=== PATIENT | female | born 1975 | race Hispanic/Latino ===

== ENCOUNTER → 2016-10-22 | Outpatient (CLI) | payer OTHER ==
--- NOTE | 2016-10-26 14:51 | REPMRS ---
Patient History The patient states she has not had a clinical breast exam in over a year. Family history of ovarian cancer in sister at age 40 and breast cancer in maternal aunt at age 50. File area will be calling for [place] priors Digital Mammo Screening Bilat: October 22, 2016 - Exam #: [id number] Bilateral CC and MLO view(s) were taken. Technologist: Margarita Christopher, Technologist FINDINGS: The breast tissue is heterogeneously dense. This may lower the sensitivity of mammography. There has been no change in the appearance of the mammogram from the prior studies. There is a moderate amount of residual fibroglandular tissue which is fairly symmetric. There is no interval development of dominant mass, areas of architectural distortion, or clustered microcalcification typical of malignancy. ASSESSMENT: BI-RADS/ACR category 1 mammogram. Negative. Recommendation Routine screening mammogram in 1 year (for women over age 40). This mammogram was interpreted with the aid of an FDA-approved computer-aided dectection system. Electronically Signed By: Julien Smith MD 10/26/16 [id number]
== END ==
LOC: M RAD 09:02
DX: Z12.31 Encounter for screening mammogram for malignant neoplasm of breast (principal); Z80.41 Family history of malignant neoplasm of ovary; Z80.3 Family history of malignant neoplasm of breast

== ENCOUNTER 2016-12-23 08:42 | Emergency (ER) | payer OTHER ==
[~2016-12-23] VITALS: Ht 154.9 cm; Wt 52.2 kg
[2016-12-23] MEDS ORDERED: ZOFR4TAB3 PO (09:55)
[2016-12-23] MEDS ORDERED: ACETAMINOPHEN 325 MG TAB PO ONE (10:00)
[2016-12-23] MEDS ORDERED: ONDANSETRON 4 MG ORAL DISINTEGRATING TAB (S0181) PO ONE (10:00)
[2016-12-23 10:02] VITALS: BP 115/77
== END 2016-12-23 10:05 | disposition home or self-care (01) ==
LOC: M ED 09:39
DX: R10.84 Generalized abdominal pain (principal); R11.0 Nausea; R19.7 Diarrhea, unspecified; Z90.89 Acquired absence of other organs; Z88.0 Allergy status to penicillin

== ENCOUNTER → 2017-10-15 | Outpatient (CLI) | payer OTHER | LOC: M RAD 08:46 | DX: Z12.31 Encounter for screening mammogram for malignant neoplasm of breast (principal) ==

== ENCOUNTER → 2017-10-26 | Outpatient (CLI) | payer OTHER | LOC: M RAD 08:54 | DX: N60.02 Solitary cyst of left breast (principal) | CPT/HCPCS: 77066 ==

== ENCOUNTER 2018-05-03 17:02 | Emergency (ER) | payer OTHER ==
[2018-05-03] MEDS: NS 1,000 ML IV ×2 (18:14)
[2018-05-03 18:19] LABS: BASO % 0.2 % (0.0-1.0); EOS # 0.1 10^3/uL (0.0-0.50); EOS % 0.9 % (0.0-3.0); HEMATOCRIT 35.5 % (36.0-47.0); IMMATURE GRANULOCYTE % 0.2 % (0-3.0); LYMPH # 1.5 10^3/uL (1.5-4.5); LYMPH % 16.5 % (24.0-44.0); MEAN CORPUSCULAR HEMOGLOBIN 32.3 pg (27.0-33.0); MEAN CORPUSCULAR HGB CONC 33.8 g/dl (32.0-36.5); MEAN CORPUSCULAR VOLUME 95.4 fl (80.0-96.0); MONO # 0.8 10^3/uL (0.0-0.8); MONO % 9.1 % (0.0-5.0); NEUTROPHILS # 6.7 10^3/uL (1.8-7.7); NEUTROPHILS % 73.1 % (36.0-66.0); PLATELET COUNT, AUTOMATED 258 10^3/uL (150-450); RED BLOOD COUNT 3.72 10^6/uL (4.00-5.40); RED CELL DISTRIBUTION WIDTH 13.2 % (11.5-14.5); WHITE BLOOD COUNT 9.1 10^3/uL (4.0-10.0)
[2018-05-03 18:26] LABS: KETONE, URINE AUTO RFX 1+ mg/dL (NEGATIVE); LEUKOCYTE ESTERASE UR AUTO RFX NEGATIVE (NEGATIVE); MUCUS, URINE RFX SMALL (NEGATIVE); NITRITE, URINE AUTO RFX NEGATIVE (NEGATIVE); RBC, URINE AUTO RFX TNTC /HPF (0-3); SPECIFIC GRAVITY UR AUTO RFX 1.024 (1.002-1.035); SQUAM EPITHELIAL CELL UR AURFX 1 /HPF (0-6); WBC, URINE AUTO RFX 4 /HPF (0-3)
[2018-05-03 18:53] LABS: ALBUMIN 3.8 GM/DL (3.2-5.2); ALBUMIN/GLOBULIN RATIO 1.12 (1.00-1.93); ALKALINE PHOSPHATASE 62 U/L (45-117); ALT/SGPT 15 U/L (12-78); AMYLASE 100 U/L (25-115); ANION GAP 10 MEQ/L (8-16); AST/SGOT 18 U/L (7-37); BILIRUBIN,DIRECT 0.2 MG/DL (0.0-0.2); BILIRUBIN,TOTAL 0.7 MG/DL (0.2-1.0); BLOOD UREA NITROGEN 18 MG/DL (7-18); CALCIUM LEVEL 8.9 MG/DL (8.5-10.1); CARBON DIOXIDE LEVEL 24 MEQ/L (21-32); CHLORIDE LEVEL 105 MEQ/L (98-107); CREATININE FOR GFR 0.87 MG/DL (0.55-1.30); GLOMERULAR FILTRATION RATE > 60.0 (>58); GLUCOSE, FASTING 93 MG/DL (70-100); LIPASE 91 U/L (73-393); POTASSIUM SERUM 3.8 MEQ/L (3.5-5.1); SODIUM LEVEL 139 MEQ/L (136-145); TOTAL PROTEIN 7.2 GM/DL (6.4-8.2)
[2018-05-03] MEDS ORDERED: ISOVUE-370 76% 100ML VIAL (Q9967) As Ordered ×2 (19:02)
== END 2018-05-03 20:26 | disposition home or self-care (01) ==
LOC: M ED 17:02
DX: N13.30 Unspecified hydronephrosis (principal); J45.909 Unspecified asthma, uncomplicated; Z79.899 Other long term (current) drug therapy; Z88.0 Allergy status to penicillin
CPT/HCPCS: Q9967

== ENCOUNTER → 2018-05-17 | Outpatient (CLI) | payer OTHER ==
[~2018-05-17] MED LIST: ISOVUE-370 76% 100ML VIAL (Q9967) As Ordered
[2018-05-17 10:21] LABS: APPEARANCE, URINE CLEAR (CLEAR); BACTERIA, URINE AUTO NEGATIVE (NEGATIVE); BILIRUBIN, URINE AUTO NEGATIVE (NEGATIVE); BLOOD, URINE BLOOD NEGATIVE (NEGATIVE); COLOR, URINE YELLOW (YELLOW); GLUCOSE, URINE (UA) AUTO NEGATIVE (NEGATIVE); KETONE, URINE AUTO NEGATIVE (NEGATIVE); LEUKOCYTE ESTERASE, URINE AUTO NEGATIVE (NEGATIVE); MUCUS, URINE SMALL (NEGATIVE); NITRITE, URINE AUTO NEGATIVE (NEGATIVE); PROTEIN, URINE AUTO NEGATIVE (NEGATIVE); RBC, URINE AUTO 1 /HPF (0-3); SPECIFIC GRAVITY URINE AUTO 1.016 (1.002-1.035); SQUAMOUS EPITHELIAL CELL UR AU 0 /HPF (0-6); UROBILINOGEN, URINE AUTO 0.2 mg/dL (0.0-2.0); WBC, URINE AUTO 1 /HPF (0-3)
== END ==
LOC: M RAD 08:17
DX: N20.0 Calculus of kidney (principal)
CPT/HCPCS: Q9967

== ENCOUNTER 2019-07-10 19:16 | Emergency (ER) | payer OTHER ==
[~2019-07-10] VITALS: Ht 154.9 cm; Wt 52.3 kg
[~2019-07-10 19:16] MED LIST changes: +ADVA230A; +BACT800T5 PO; +DEEP; +EPIP0.3I2 IM; +FLOM0.4C39 PO; +HYDR-3715 PO; -ISOVUE-370 76% 100ML VIAL (Q9967) As Ordered; +KETO10TAB PO; +NAPR-837 PO; +OLOP0.1D; +SPIR-10; +ZOFR4TAB14 PO
[2019-07-10 21:46] VITALS: BP 111/68
== END 2019-07-10 21:51 | disposition home or self-care (01) ==
LOC: M ED 19:16
DX: S61.211A Laceration without foreign body of left index finger without damage to nail, initial encounter (principal); Y92.090 Kitchen in other non-institutional residence as the place of occurrence of the external cause; Y93.G1 Activity, food preparation and clean up; Y99.8 Other external cause status; J45.909 Unspecified asthma, uncomplicated; Z88.0 Allergy status to penicillin; Z79.899 Other long term (current) drug therapy; Z79.51 Long term (current) use of inhaled steroids

== ENCOUNTER 2019-12-21 16:50 | Emergency (ER) | payer OTHER ==
[~2019-12-21] VITALS: Ht 154.9 cm; Wt 53.7 kg
[2019-12-21] MEDS ORDERED: NAPR-885 (16:57)
[2019-12-21] MEDS ORDERED: NS 1,000 ML IV ONE (17:45)
[2019-12-21] MEDS ORDERED: ONDANSETRON 4MG/2ML VIAL IV ONE (17:45)
[2019-12-21] MEDS ORDERED: KETOROLAC 30 MG/ML 1ML VIAL IV ONE (18:00)
[2019-12-21 18:29] LABS: BASO % 0.4 % (0.0-1.0); EOS # 0.1 10^3/uL (0.0-0.5); EOS % 0.9 % (0.0-3.0); HEMATOCRIT 37.9 % (36.0-47.0); HEMOGLOBIN 12.5 g/dl (12.0-15.5); LYMPH # 1.9 10^3/uL (1.5-5.0); LYMPH % 20.2 % (24.0-44.0); MEAN CORPUSCULAR HEMOGLOBIN 32.3 pg (27.0-33.0); MEAN CORPUSCULAR VOLUME 97.9 fl (80.0-96.0); MONO # 0.9 10^3/uL (0.0-0.8); MONO % 9.3 % (0.0-5.0); NEUTROPHILS # 6.3 10^3/uL (1.5-8.5); NEUTROPHILS % 68.8 % (36.0-66.0); PLATELET COUNT, AUTOMATED 246 10^3/uL (150-450); RED BLOOD COUNT 3.87 10^6/uL (4.00-5.40); WHITE BLOOD COUNT 9.2 10^3/uL (4.0-10.0)
[2019-12-21 18:38] LABS: ALBUMIN 3.8 GM/DL (3.2-5.2); ALT/SGPT 21 U/L (12-78); BILIRUBIN,DIRECT 0.2 MG/DL (0.0-0.2); BILIRUBIN,TOTAL 0.6 MG/DL (0.2-1.0); BLOOD UREA NITROGEN 14 MG/DL (7-18); CALCIUM LEVEL 9.1 MG/DL (8.5-10.1); CARBON DIOXIDE LEVEL 31 MEQ/L (21-32); CHLORIDE LEVEL 106 MEQ/L (98-107); CREATININE FOR GFR 0.76 MG/DL (0.55-1.30); GLOMERULAR FILTRATION RATE > 60.0 (>58); GLUCOSE, FASTING 74 MG/DL (70-100); LIPASE 82 U/L (73-393); POTASSIUM SERUM 3.8 MEQ/L (3.5-5.1); SODIUM LEVEL 142 MEQ/L (136-145); TOTAL PROTEIN 7.1 GM/DL (6.4-8.2)
--- NOTE | 2019-12-21 19:39 | REPVR ---
PROCEDURE INFORMATION: Exam: CT Abdomen And Pelvis Without Contrast Exam date and time: 12/21/2019 7:22 PM Age: 44 years old Clinical indication: Abdominal pain; Flank; Left; Additional info: Left flank pain, hematuria TECHNIQUE: Imaging protocol: Computed tomography of the abdomen and pelvis without contrast. Radiation optimization: All CT scans at this facility use at least one of these dose optimization techniques: automated exposure control; mA and/or kV adjustment per patient size (includes targeted exams where dose is matched to clinical indication); or iterative reconstruction. COMPARISON: CT ABD PELVIS W/O FOL BY WIT 05/17/2018 8:44 AM FINDINGS: Liver: Normal. No mass. Gallbladder and bile ducts: The gallbladder is incompletely distended. This is most likely related to incomplete fasting. Clinical correlation to exclude gallbladder pathology suggested. Pancreas: Normal. No ductal dilation. Spleen: Normal. No splenomegaly. Adrenals: Normal. No mass. Kidneys and ureters: Punctate nonobstructive calculi both kidneys. Punctate 2 mm and 3 mm calculi in the region of the left UVJ may represent obstructive ureteral calculus although the distal left ureter is not clearly visualized. Further evaluation with CT urography could be obtained if clinically desired. Stomach and bowel: Unremarkable. No obstruction. No mucosal thickening. Appendix: There has been an appendectomy. Intraperitoneal space: Unremarkable. No free air. No significant fluid collection. Vasculature: Unremarkable. No abdominal aortic aneurysm. Lymph nodes: Unremarkable. No enlarged lymph nodes. Bladder: Unremarkable as visualized. Reproductive: Unremarkable as visualized. Bones/joints: Unremarkable. No acute fracture. Soft tissues: Unremarkable. IMPRESSION: 1. The gallbladder is incompletely distended. This is most likely related to incomplete fasting. Clinical correlation to exclude gallbladder pathology suggested. 2. Punctate nonobstructive calculi both kidneys. 3. Punctate 2 mm and 3 mm calculi in the region of the left UVJ may represent obstructive ureteral calculus although the distal left ureter is not clearly visualized. Further evaluation with CT urography could be obtained if clinically desired. Electronically signed by: León Lo On 12/21/2019 19:38:48 PM
[2019-12-21] MEDS ORDERED: KETO10TAB PO (20:06)
[2019-12-21] MEDS ORDERED: FLOM0.4C39 PO (20:06)
[2019-12-21] MEDS ORDERED: KETOROLAC TROMETHAMINE 10 MG TAB PO ONE (20:15)
[2019-12-21] MEDS ORDERED: TAMSULOSIN 0.4 MG CAP PO ONE (20:15)
[2019-12-21 20:20] VITALS: BP 126/74
== END 2019-12-21 20:22 | disposition home or self-care (01) ==
LOC: M ED 16:50
DX: N20.1 Calculus of ureter (principal); J45.909 Unspecified asthma, uncomplicated; K90.0 Celiac disease; Z88.0 Allergy status to penicillin; Z79.899 Other long term (current) drug therapy; Z79.51 Long term (current) use of inhaled steroids; Z79.1 Long term (current) use of non-steroidal anti-inflammatories (NSAID)
CPT/HCPCS: 36415; 74176; 80048; 80076; 81001; 83690; 84702; 85025; 87086; 96361; 96374; 96375; 99284; J1885; J2405

== ENCOUNTER → 2019-12-28 | Outpatient (REF) | payer OTHER ==
[~2019-12-28] MED LIST changes: +NAPR-885
[2019-12-28 15:34] LABS: APPEARANCE, URINE CLEAR (CLEAR); BACTERIA, URINE AUTO NEGATIVE (NEGATIVE); BILIRUBIN, URINE AUTO NEGATIVE (NEGATIVE); BLOOD, URINE BLOOD 2+ (NEGATIVE); COLOR, URINE COLORLESS (YELLOW); GLUCOSE, URINE (UA) AUTO NEGATIVE (NEGATIVE); KETONE, URINE AUTO NEGATIVE (NEGATIVE); LEUKOCYTE ESTERASE, URINE AUTO NEGATIVE (NEGATIVE); NITRITE, URINE AUTO NEGATIVE (NEGATIVE); PROTEIN, URINE AUTO NEGATIVE (NEGATIVE); RBC, URINE AUTO 0 /HPF (0-3); SPECIFIC GRAVITY URINE AUTO 1.003 (1.002-1.035); SQUAMOUS EPITHELIAL CELL UR AU 0 /HPF (0-6); UROBILINOGEN, URINE AUTO 0.2 mg/dL (0.0-2.0); WBC, URINE AUTO 0 /HPF (0-3)
== END ==
LOC: M SMT 15:00
PROVIDERS: ATTEND Nurse Practitioner Family
DX: N20.0 Calculus of kidney (principal)
CPT/HCPCS: 81001; 87086; G0463

== ENCOUNTER → 2020-01-18 | Outpatient (CLI) | payer OTHER ==
[~2020-01-18] MED LIST changes: +ISOVUE-370 76% 100ML VIAL As Ordered ONE
--- NOTE | 2020-01-19 05:34 | REP ---
Clinical: History of kidney stone. Technique: Axial precontrast, contrast enhanced, and delayed images of the abdomen and pelvis using 100 ml Isovue 370 intravenous contrast material with coronal and sagittal re-formations. Comparison: 12/21/2019, 05/17/2018. Findings: The kidneys demonstrate few bilateral nonobstructing intrarenal calculi (right greater than left) measuring 2 mm in left kidney and 3 mm in the right kidney. No associated perinephric stranding, hydroureteronephrosis, or definite obstructing ureteral calculi noted. Calcifications identified within the lower abdomen and pelvis are similar to 2018 and likely represent scattered phleboliths. Liver, spleen, pancreas, gallbladder, and bilateral adrenal glands are normal. The enteric system is without obstruction or acute inflammatory process. Pelvis demonstrates normal bladder and age-appropriate uterus/adnexa. No significant ascites. No free air. No obvious adenopathy. Abdominal aorta and vasculature without aneurysm or dissection. Surrounding musculoskeletal structures without acute osseous abnormality. Impression: 1. Few nonobstructing bilateral intrarenal calculi up to 3 mm without hydronephrosis or perinephric stranding. 2. Scattered calcifications within the lower abdomen and pelvis are similar to prior examinations and likely represent phleboliths although small nonobstructing ureteral calculus cannot definitively be excluded. 3. No further acute abdominopelvic pathology appreciated. Electronically Signed by Ronnie Pisano MD 01/19/2020 05:25 A
== END ==
LOC: M RAD 14:56
PROVIDERS: ATTEND Nurse Practitioner Family
DX: N20.0 Calculus of kidney (principal)
CPT/HCPCS: 74178; Q9967

== ENCOUNTER → 2020-01-19 | Outpatient (CLI) | payer OTHER ==
[~2020-01-19] MED LIST changes: -ISOVUE-370 76% 100ML VIAL As Ordered ONE
--- NOTE | 2020-01-20 07:59 | REP ---
BILATERAL MAMMOGRAM WITH 3D TOMOSYNTHESIS: FAMILY HISTORY: Breast cancer in maternal aunt. [facility] lifetime risk of breast cancer 12.2%. COMPARISON MAMMOGRAM: 10/26/2017 and 10/22/2016. Breast parenchyma is moderately dense in a heterogenous pattern bilaterally, diffusely. I see no mass. No architectural distortion is seen. There do appear to be tiny pleomorphic microcalcifications in the upper outer quadrant of the right breast. IMPRESSION: There appear to be several tiny pleomorphic microcalcifications in the upper outer quadrant of the right breast. Recommend magnification views to further evaluate. ACR 0, incomplete. BIRADS 0: BI-RADS/ACR category 0 mammogram, Incomplete: Need additional imaging evaluation and/or prior mammograms for comparison. This mammogram was interpreted with the aid of an FDA-approved computer-aided detection system. The patient states that she or he has not had a clinical breast exam in over a year. The patient letter being requested is M0.
== END ==
LOC: M WHC 15:04
PROVIDERS: ATTEND Nurse Practitioner Primary Care
DX: Z12.31 Encounter for screening mammogram for malignant neoplasm of breast (principal); R92.0 Mammographic microcalcification found on diagnostic imaging of breast

== ENCOUNTER → 2020-02-02 | Outpatient (REF) | payer OTHER ==
[~2020-02-02] MED LIST changes: +HYDR-3713 PO
[2020-02-02 18:04] LABS: APPEARANCE, URINE CLEAR (CLEAR); BACTERIA, URINE AUTO NEGATIVE (NEGATIVE); BILIRUBIN, URINE AUTO NEGATIVE (NEGATIVE); BLOOD, URINE BLOOD NEGATIVE (NEGATIVE); COLOR, URINE COLORLESS (YELLOW); GLUCOSE, URINE (UA) AUTO NEGATIVE (NEGATIVE); KETONE, URINE AUTO NEGATIVE (NEGATIVE); LEUKOCYTE ESTERASE, URINE AUTO NEGATIVE (NEGATIVE); NITRITE, URINE AUTO NEGATIVE (NEGATIVE); PROTEIN, URINE AUTO NEGATIVE (NEGATIVE); RBC, URINE AUTO 0 /HPF (0-3); SPECIFIC GRAVITY URINE AUTO 1.001 (1.002-1.035); SQUAMOUS EPITHELIAL CELL UR AU 0 /HPF (0-6); UROBILINOGEN, URINE AUTO 0.2 mg/dL (0.0-2.0); WBC, URINE AUTO 0 /HPF (0-3)
== END ==
LOC: M SMT 16:38
PROVIDERS: ATTEND Nurse Practitioner Family
DX: N20.0 Calculus of kidney (principal)
CPT/HCPCS: 81001; 87086; G0463

== ENCOUNTER → 2020-02-05 | Outpatient (CLI) | payer OTHER ==
--- NOTE | 2020-02-05 16:23 | REP ---
DIGITAL DIAGNOSTIC UNILATERAL RIGHT BREAST MAMMOGRAPHY WITH CAD: THREE VIEWS. HISTORY: Screening mammography January 19, 2020 was BI-RADS category 0 because of tiny pleomorphic microcalcifications in the upper outer quadrant. Comparison is also made with October 26, 2017 and October 22, 2016 prior mammography. MAMMOGRAPHIC FINDINGS: Magnified focal spot compression craniocaudal, mediolateral oblique, and mediolateral views confirm the presence of a grouping of pleomorphic microcalcifications in the upper outer quadrant of the right breast laterally. This represents a change from prior mammography. No architectural distortion or mass lesion is seen. IMPRESSION: BIRADS 4: BI-RADS/ACR category 4 mammogram. Suspicious Abnormality - biopsy should be considered. BI-RADS category 4 suspicious right breast mammogram. Microcalcifications confirmed in the upper outer quadrant on the right. Stereotactic needle biopsy recommended. This mammogram was interpreted with the aid of an FDA-approved computer-aided detection system.
== END ==
LOC: M WHC 15:37
PROVIDERS: ATTEND Nurse Practitioner Primary Care
DX: Z12.31 Encounter for screening mammogram for malignant neoplasm of breast (principal); R92.0 Mammographic microcalcification found on diagnostic imaging of breast

== ENCOUNTER 2020-02-13 22:26 | Emergency (ER) | payer OTHER ==
[~2020-02-13] VITALS: Ht 154.9 cm; Wt 51.2 kg
[~2020-02-13 22:26] MED LIST changes: -HYDR-3713 PO
[2020-02-13] MEDS ORDERED: HYDR-3713 PO (22:49)
[2020-02-14 01:00] VITALS: BP 148/88
[2020-02-14] MEDS ORDERED: MAGNESIUM CITRATE 300 ML BTL PO ONE (01:00)
== END 2020-02-14 01:13 | disposition home or self-care (01) ==
LOC: M ED 22:26
DX: K64.8 Other hemorrhoids (principal)

== ENCOUNTER → 2020-02-28 | Outpatient (CLI) | payer OTHER ==
[~2020-02-28] MED LIST changes: +HYDR-3713 PO
[2020-02-28 09:32] VITALS: BP 128/80
--- NOTE | 2020-02-28 10:30 | REP ---
STEREOTACTIC NEEDLE BIOPSY PROCEDURE RIGHT BREAST: Stereotactic guidance. HISTORY: Right breast microcalcifications. Comparison mammography February 05, 2020. FINDINGS: Stereotactic imaging guidance is provided to Dr. Renner who performed stereotactic needle biopsy procedure for microcalcific grouping upper outer quadrant right breast.
--- NOTE | 2020-02-28 10:37 | REP ---
SPECIMEN RADIOGRAPHY RIGHT BREAST: HISTORY: Stereotactic needle biopsy for microcalcifications. FINDINGS: Specimen radiograph demonstrates microcalcifications from the microcalcific grouping in three of the removed specimens. The microcalcific grouping appears to have been removed entirely. IMPRESSION: Specimen radiography shows microcalcifications.
--- NOTE | 2020-02-28 13:42 | REP ---
DIGITAL DIAGNOSTIC UNILATERAL RIGHT BREAST MAMMOGRAPHY: Two views. With CAD HISTORY: Status post stereotactic needle biopsy procedure for a microcalcifications. Comparison mammography February 05, 2020. FINDINGS: Craniocaudal and mediolateral views are obtained. These demonstrate the needle biopsy marker clip in good position at the site where prior mammography showed microcalcifications. The microcalcifications are not visible consistent with complete removal of the microcalcific target. There is some post biopsy skin thickening laterally. IMPRESSION: Marker clip in good position. This mammogram was interpreted with the aid of an FDA-approved computer-aided detection system.
--- NOTE | 2020-05-02 18:39 | ROOPDOC ---
[facility] Report Of Operation Report of Operation This is a late entry note for the encounter from the date 02/28/20. Delay is due to major systemwide [facility] computer outage. procedure Date: 02/28/20 Dx: Right breast calcifications Procedure: Right breast stereotactic biopsy with clop placement Findings: calcifications are present in the specimen. The clip is seen on postbiopsy mammogram in the expected position surgeon: Bharat Tariq Lidocaine 1% LOT [id number] Expiration 01/2023 Sodium Bicarbonate 8.4% LOT [id number] Expiration 01/2021 Hydromark clip LOT [id number] Expiration 05/2021 REF: T1 titanium shaped 1 (closed Spring) Bx device: Stereotactic Mammotome Revolve Dual Vacuum- assisted Biopsy System 10 G LOT [id number] Expiration 10/2022 REF [id number] Informed consent was obtained in the preop area. The most common risk and possible complications including bleeding, hematoma, bruising, infection, injury to surrounding structures were explained to the patient and she expressed understanding. Patient was taken to the procedure room and placed prone on the [facility] Prone Breast Biopsy table with the right breast hanging through the table aperture. Right breast was placed into Cranio-Caudal compression and [facility] zena images were taken. Suspicious calcifications were identified on the zena images and target was set. CC approach from the top was chosen for this procedure. At this time, since we were able to confirm visibility of the suspicious calci fications and patient tolerated prone positioning allowing to proceed with the biopsy, appropriate time out was done stating patients name, date of , and the procedure to be performed. The right breast in CC compression was prepped in the usual fashion. Plain Lidocaine 1% and 8.4% sodium bicarbonate 10:1 mix was used to anesthetize the skin, the biopsy site and tissues along the anticipated biopsy tract. Small skin incision was made with blade number 11. Mammotome 10 G stereotactic breast biopsy device was inserted through the incision and advanced to the previously set coordinates marking the target lesion. Pre-fire imaging was taken to assure appropriate positioning. At this time, Mammotome 10 G breast biopsy device was fired and vacuum assisted biopsies were collected. The biopsy samples were investigated with [employer] system and target calcifications were observed. Biopsy samples were then placed in the formaldehyde, marked with patients name and right breast biopsy site, and sent to pathology for evaluation. Hydromark clip was placed into the Mammotome biopsy device channel and deployed. Post-deployment imaging was done to assure appropriate clip deployment. Clip was noted in the right breast. At this point, paddle CC compression of the right breast was released and manual pressure was held to decrease harmonic effect and to assure hemostasis. There was some persistent bleeding noted after pressure release. Pressure was held until bleeding stopped. Patient was slowly repositioned and placed into sitting position, and then assisted off the table. Post-biopsy mammogram of the right breast was obtained and showed clip in expected position. Postprocedural dressing was placed. Patient tolerated procedure well and was taken to the recovery unit in stable condition. Discharge instructions were discussed with the patient and she expressed understanding. BHARAT TARIQ DO May 02, 2020 18:39
== END ==
LOC: M WHCPRO 07:35
PROVIDERS: ATTEND Surgery
DX: N60.11 Diffuse cystic mastopathy of right breast (principal); R59.9 Enlarged lymph nodes, unspecified; R92.1 Mammographic calcification found on diagnostic imaging of breast

== ENCOUNTER → 2020-04-10 | Outpatient (CLI) | payer OTHER ==
--- NOTE | 2020-05-07 13:01 | REP ---
ULTRASOUND RIGHT AXILLA HISTORY: Palpable lump right axilla. TECHNIQUE: Real-time sonographic evaluation of the right axillary region is performed. FINDINGS: There are two morphologically normal appearing lymph nodes present in the right axilla, demonstrating a thin hypoechoic rim and an echogenic hilum. These measure 1.2 x 0.9 x 0.4 cm and 1.3 x 0.9 x 0.7 cm. No other mass is seen. IMPRESSION: There are two normal appearing lymph nodes in the right axilla without other significant abnormality MTDD
--- NOTE | 2020-05-07 13:02 | REP ---
ULTRASOUND RIGHT BREAST HISTORY: Palpable lump 10 o'clock right breast 6 cm from the nipple. TECHNIQUE: Real-time sonographic evaluation of the right breast is performed in the region of the palpable lump 10 o'clock right breast. FINDINGS: Patient had stereotactic biopsy of microcalcifications at this same location of the right breast on 02/28/2020. Postbiopsy mammographic images do show suspected postbiopsy hematoma at the biopsy site. The ultrasound shows ill-defined heterogeneous nodular soft tissue with cystic components. There also appears to be a biopsy clip within this area of abnormal echotexture. The entire area measures 1.8 x 1.2 x 1.1 cm. The two cystic components measure 5 mm and 8 mm in maximum diameter. I suspect this represents a post-biopsy hematoma. IMPRESSION: ACR 3 probably benign. Heterogeneous cystic and solid nodule at the site of recent stereotactic biopsy I suspect represents a resolving hematoma. Recommend follow-up ultrasound in six months MTDD
== END ==
LOC: M WHC 14:54
PROVIDERS: ATTEND Surgery
DX: R59.9 Enlarged lymph nodes, unspecified (principal); N63.10 Unspecified lump in the right breast, unspecified quadrant

== ENCOUNTER → 2020-10-15 | Outpatient (CLI) | payer OTHER ==
--- NOTE | 2020-10-15 15:10 | REP ---
INDICATION: R92.1 RT BREAST CALCIFICATION,S/P BX,ASSESS STABILITY. Patient underwent stereotactic needle biopsy for microcalcifications right breast February 28, 2020. Benign pathologic result. COMPARISON: Comparison mammography is from February 28, 2020, and February 05, 2020. TECHNIQUE: Craniocaudal and mediolateral views are obtained. 3D tomography is carried out in the right breast. This mammogram was interpreted with the aid of an FDA-approved computer-aided detection system. FINDINGS: Heterogeneously dense breast parenchyma is observed in the right breast as before. Previously placed needle biopsy marker clip is again seen in the upper outer quadrant unchanged in position. The micro calcific target had been removed. No microcalcifications are seen. There is no evidence of spiculation architectural distortion or mass. The Volpara volumetric breast density pattern is C. : IMPRESSION: BIRADS/ACR category 2 benign right breast mammographic . This patient's Tyrer-Cuzick lifetime breast cancer risk assessment score is 12.0%. RECOMMENDATION: Repeat screening mammography recommended 1 year (for women over 40). The patient letter being requested is M2 dense. <Electronically signed by Jerel Alejandro > 10/15/20 [id number]
--- NOTE | 2020-10-15 17:01 | REP ---
INDICATION: R92.1 RT BREAST CALCIFICATION,S/P BX,ASSESS STABILITY. COMPARISON: Comparison targeted right breast sonography April 10, 2020 showed a ill-defined 1.8 cm area, of complex echogenicity thought to represent post biopsy hematoma. Follow-up at been recommended by ultrasound.. TECHNIQUE: Targeted right breast sonography is performed. FINDINGS: Scanning at the level of the previous biopsy site in the 10 o'clock position demonstrates a HydroMARK clip device in place. Adjacent to this there is a 0.5 x 0.7 x 0.2 cm simple cyst. The previously noted complex area has resolved. IMPRESSION: BI-RADS category 2 benign findings. <Electronically signed by Jerel Alejandro > 10/15/20 [id number]
== END ==
LOC: M WHC 14:22
PROVIDERS: ATTEND Surgery
DX: R92.1 Mammographic calcification found on diagnostic imaging of breast (principal); Z97.8 Presence of other specified devices
CPT/HCPCS: 76642; 77065; G0279

== ENCOUNTER 2020-11-17 02:07 | Emergency (ER) | payer OTHER ==
[~2020-11-17] VITALS: Ht 154.9 cm; Wt 54.5 kg
[2020-11-17] MEDS ORDERED: TERB250T12 PO (02:14)
[2020-11-17] MEDS ORDERED: ONDANSETRON 4MG/2ML VIAL IV ONE (03:15)
[2020-11-17] MEDS ORDERED: KETOROLAC 30 MG/ML 1ML VIAL IV ONE (03:15)
[2020-11-17 03:45] LABS: HEMATOCRIT 33.6 % (36.0-47.0); MEAN CORPUSCULAR HGB CONC 32.7 g/dl (32.0-36.5); MEAN CORPUSCULAR VOLUME 97.7 fl (80.0-96.0); PLATELET COUNT, AUTOMATED 209 10^3/uL (150-450); RED BLOOD COUNT 3.44 10^6/uL (4.00-5.40); WHITE BLOOD COUNT 6.6 10^3/uL (4.0-10.0)
--- NOTE | 2020-11-17 04:06 | REPVR ---
PROCEDURE INFORMATION: Exam: CT Abdomen And Pelvis Without Contrast Exam date and time: 11/17/2020 3:28 AM Age: 45 years old Clinical indication: Abdominal pain; Flank; Right; Additional info: Right flank pain HX of stone TECHNIQUE: Imaging protocol: Computed tomography of the abdomen and pelvis without contrast. Radiation optimization: All CT scans at this facility use at least one of these dose optimization techniques: automated exposure control; mA and/or kV adjustment per patient size (includes targeted exams where dose is matched to clinical indication); or iterative reconstruction. COMPARISON: 1. CT ABD PELVIS W/O FOL BY WIT 2020-01-18 16:[address] ABD PELVIS W/O CONTRAST 2019-12-21 19:19 FINDINGS: Liver: Normal. No mass. Gallbladder and bile ducts: Normal. No calcified stones. No ductal dilation. Pancreas: Normal. No ductal dilation. Spleen: Normal. No splenomegaly. Adrenal glands: Normal. No mass. Kidneys and ureters: Punctate nonobstructing right renal calculus. Mild right hydronephrosis and hydroureter with several ureteral calculi, larger of which measures 4 mm, likely source for obstruction. Stomach and bowel: Unremarkable. No obstruction. No mucosal thickening. Appendix: No evidence of appendicitis. Intraperitoneal space: Unremarkable. No free air. No significant fluid collection. Vasculature: Numerous phleboliths in the pelvis. Lymph nodes: Unremarkable. No enlarged lymph nodes. Urinary bladder: Unremarkable as visualized. Reproductive: Anteverted enlarged uterus. Bones/joints: Moderate lumbar spondylosis. Soft tissues: Unremarkable. IMPRESSION: Mild right hydronephrosis and hydroureter with several mid to distal ureteral calculi, larger of which measures 4 mm, likely source for obstruction. Electronically signed by: Luis Ha On 11/17/2020 04:06:56 AM
[2020-11-17 04:10] LABS: ALBUMIN 2.8 GM/DL (3.2-5.2); ALT/SGPT 12 U/L (12-78); BILIRUBIN,TOTAL 0.4 MG/DL (0.2-1.0); BLOOD UREA NITROGEN 11 MG/DL (7-18); CALCIUM LEVEL 8.5 MG/DL (8.5-10.1); CARBON DIOXIDE LEVEL 29 MEQ/L (21-32); CHLORIDE LEVEL 110 MEQ/L (98-107); CREATININE FOR GFR 0.67 MG/DL (0.55-1.30); GLOMERULAR FILTRATION RATE > 60.0 (>58); GLUCOSE, FASTING 98 MG/DL (70-100); POTASSIUM SERUM 3.8 MEQ/L (3.5-5.1); SODIUM LEVEL 141 MEQ/L (136-145); TOTAL PROTEIN 6.4 GM/DL (6.4-8.2)
[2020-11-17] MEDS ORDERED: ONDA4TAB6 PO (06:08)
[2020-11-17] MEDS ORDERED: OXYC-517 PO (06:08)
[2020-11-17 06:26] VITALS: BP 132/72
== END 2020-11-17 06:27 | disposition home or self-care (01) ==
LOC: M ED 02:07
DX: N20.1 Calculus of ureter (principal); M10.9 Gout, unspecified; N13.39 Other hydronephrosis; R51.9 Headache, unspecified; Z87.442 Personal history of urinary calculi; Z88.0 Allergy status to penicillin; Z79.899 Other long term (current) drug therapy
CPT/HCPCS: 74176; 80053; 81001; 85027; 87088; 87186; 96374; 96375; 99284; J1885; J2405

== ENCOUNTER → 2020-11-29 | Outpatient (REF) | payer OTHER ==
[~2020-11-29] MED LIST changes: +ONDA4TAB6 PO; +OXYC-517 PO; +TERB250T12 PO
== END ==
LOC: M SFHCPLAZ 09:31
PROVIDERS: ATTEND Family Medicine
DX: R51.9 Headache, unspecified (principal); D64.9 Anemia, unspecified

== ENCOUNTER → 2020-12-03 | Outpatient (REF) | payer OTHER ==
[2020-12-03 12:43] LABS: APPEARANCE, URINE CLEAR (CLEAR); BACTERIA, URINE AUTO NEGATIVE (NEGATIVE); BILIRUBIN, URINE AUTO NEGATIVE (NEGATIVE); BLOOD, URINE BLOOD NEGATIVE (NEGATIVE); COLOR, URINE YELLOW (YELLOW); GLUCOSE, URINE (UA) AUTO NEGATIVE (NEGATIVE); KETONE, URINE AUTO NEGATIVE (NEGATIVE); LEUKOCYTE ESTERASE, URINE AUTO NEGATIVE (NEGATIVE); MUCUS, URINE SMALL (NEGATIVE); NITRITE, URINE AUTO NEGATIVE (NEGATIVE); PROTEIN, URINE AUTO NEGATIVE (NEGATIVE); RBC, URINE AUTO 0 /HPF (0-3); SPECIFIC GRAVITY URINE AUTO 1.018 (1.002-1.035); SQUAMOUS EPITHELIAL CELL UR AU 2 /HPF (0-6); UROBILINOGEN, URINE AUTO 0.2 mg/dL (0.0-2.0); WBC, URINE AUTO 1 /HPF (0-3)
== END ==
LOC: M SMT 12:16
PROVIDERS: ATTEND Nurse Practitioner Family
DX: N20.0 Calculus of kidney (principal)

== ENCOUNTER → 2020-12-10 | Outpatient (REF) | payer OTHER | LOC: M SFHCPLAZ 08:58 | PROVIDERS: ATTEND Family Medicine | DX: D64.9 Anemia, unspecified (principal); R51.9 Headache, unspecified ==

== ENCOUNTER → 2020-12-13 | Outpatient (CLI) | payer OTHER ==
--- NOTE | 2020-12-13 08:05 | REP ---
INDICATION: KIDNEY STONES- LABS FIRST. COMPARISON: Comparison is made with imaging from CT scan November 17, 2020.. TECHNIQUE: Limited pelvic bladder sonography. Transabdominal imaging. FINDINGS: Bladder wilson are smooth. Mildly enlarged uterus as seen on CT. No free fluid. No bladder or mass lesion is observed. The prevoid bladder volume is calculated at 473 mL. Postvoid residual is calculated at 26 mL (5%). Emptying ureteral jets are confirmed on color Doppler interrogation of the bladder lumen from both ureters. IMPRESSION: Unremarkable bladder sonography. <Electronically signed by Jerel Alejandro > 12/13/20 [id number]
--- NOTE | 2020-12-13 08:07 | REP ---
INDICATION: KIDNEY STONES- LABS FIRST COMPARISON: None TECHNIQUE: Real time fajardo scale ultrasound examination using curved array transducer. FINDINGS: Bilateral kidneys are normal in reniform shape and echogenicity without hydronephrosis, renal cystic or mass lesion. Right kidney measures 10.0 x 6.2 x 4.4 cm with 4 mm lower pole nonobstructing calculus. Left kidney measures 9.7 x 5.4 x 5.7 cm without renal calculi. IMPRESSION: 4 mm right renal calculus. <Electronically signed by Ronnie Pisano > 12/13/20 [id number]
== END ==
LOC: M RAD 06:48
PROVIDERS: ATTEND Nurse Practitioner Family
DX: N20.0 Calculus of kidney (principal)

== ENCOUNTER → 2020-12-13 | Outpatient (CLI) | payer OTHER ==
[2020-12-13 07:47] LABS: PARTIAL THROMBOPLASTIN TIME 25.6 SECONDS (24.2-38.5)
[2020-12-13 07:50] LABS: INR 0.96
[2020-12-13 08:03] LABS: ALBUMIN 3.8 GM/DL (3.2-5.2); ALT/SGPT 13 U/L (12-78); BILIRUBIN,DIRECT 0.2 MG/DL (0.0-0.2); BILIRUBIN,TOTAL 0.8 MG/DL (0.2-1.0); BLOOD UREA NITROGEN 14 MG/DL (7-18); CALCIUM LEVEL 9.2 MG/DL (8.5-10.1); CARBON DIOXIDE LEVEL 27 MEQ/L (21-32); CHLORIDE LEVEL 102 MEQ/L (98-107); CREATININE FOR GFR 0.71 MG/DL (0.55-1.30); FERRITIN 15 NG/ML (8-252); GLOMERULAR FILTRATION RATE > 60.0 (>58); GLUCOSE, FASTING 90 MG/DL (70-100); IRON (FE) 123 UG/DL (50-170); PERCENT SATURATION 31.3 % (13.2-45.0); POTASSIUM SERUM 4.1 MEQ/L (3.5-5.1); SODIUM LEVEL 134 MEQ/L (136-145); TOTAL IRON BINDING CAPACITY 393 UG/DL (250-450); TOTAL PROTEIN 7.5 GM/DL (6.4-8.2)
[2020-12-13 11:25] LABS: VITAMIN B12 LEVEL 855 PG/ML
[2020-12-13 11:27] LABS: FOLATE 19.2 NG/ML
== END ==
LOC: M LAB 06:49
PROVIDERS: ATTEND Student in an Organized Health Care Education/Training Program
DX: D64.9 Anemia, unspecified (principal)